=== PATIENT | male | born 1965 | race Caucasian/White ===

== ENCOUNTER → 2024-11-18 | Outpatient (CLI) | payer BC, SELFPAY ==
[2024-11-18 08:44] LABS: Prostate Specific Antigen 0.58 ng/mL (0-4.00)
[2024-11-18 08:48] LABS: Alanine Aminotransferase 21 U/L (10-49); Albumin, Serum 4.3 gm/dL (3.5-5.0); Albumin/Globulin Ratio 1.9 (1.2-2.2); Alkaline Phosphatase 96 U/L (46-116); Anion Gap 8 (7-16); Aspartate Amino Transferase 24 U/L (0-34); BUN/Creatinine Ratio 16 Ratio (12-20); Bilirubin,Total 0.7 mg/dL (0.3-1.2); Blood Urea Nitrogen 24 mg/dL (9-23); Calcium 9.3 mg/dL (8.3-10.6); Calcium (Corrected) 9.3 mg/dL (8.5-10.1); Carbon Dioxide 29.1 mMol/L (20.0-31.0); Cardiac Risk Estimate 5.1 RATIO (4.0-6.7); Chloride 105 mMol/L (98-107); Cholesterol 244 mg/dL (132-200); Creatinine (Component) 1.5 mg/dL (0.6-1.3); Globulin 2.3 gm/dL (2.3-3.5); Glucose 106 mg/dL (74-106); HDL Cholesterol 48 mg/dL (40-60); LDL Cholesterol,Calculated 169 mg/dL (0-130); Osmolality,Calculated 287 (275-295); Potassium 4.9 mMol/L (3.4-5.1); Sodium 142 mMol/L (136-145); Total Protein 6.6 gm/dL (5.7-8.2); Triglycerides 135 mg/dL (30-150); eGFR 54 See Note
== END | disposition home or self-care (01) ==
LOC: COPL 06:58
PROVIDERS: PCP Family Medicine; Referring Provider Family Medicine; Visit Provider Family Medicine
DX: Z13.1 Encounter for screening for diabetes mellitus (principal); E78.1 Pure hyperglyceridemia; N42.9 Disorder of prostate, unspecified
CPT/HCPCS: 36415; 80053; 80061; 84153

== ENCOUNTER 2024-12-23 07:02 | Day surgery (SDC) | payer BC, SELFPAY ==
--- NOTE | 2024-12-21 13:26 | PC.NURSE ---
Tried calling patient for liason did not answer.
--- NOTE | 2024-12-22 07:00 | EKG_ITS ---
[facility] Test Date: 2024-12-21 Pat Name: OLGA MANZANO Department: Room: - Gender: Male Driver Starting Gate: LEANNE : 1965 Requested By: Huang Headley Order Number: [id number] Reading MD: Huang Headley Measurements Intervals [place] Rate: 79 P: 30 ID: [id number] QRS: 26 QRSD: 170 T: 36 QT: 422 QTc: 486 Interpretive Statements ELECTRONIC VENTRICULAR PACEMAKER ABNORMAL RHYTHM ECG Compared to ECG 02/19/2018 11:10:44 Atrial-paced complex(es) or rhythm no longer present /store/S0/[id number]/ecg/[id number].pdf
[2024-12-22 08:52] LABS: Basophils % (Auto) 1 % (0-2.5); Eosinophils # (Auto) 0.1 Thou/mm3 (0.0-0.5); Eosinophils % (Auto) 2 % (0-10); Hematocrit 42.9 % (41.0-53.0); Hemoglobin 14.8 g/dL (13.5-16.0); Immature Granulocytes % (Auto) 0 % (0-0); Immature Granulocytes Auto 0.01 Thou/mm3 (0.00-0.00); Lymphocytes # (Auto) 2.2 Thou/mm3 (1.0-4.8); Lymphocytes % (Auto) 36 % (10-50); Mean Corpuscular HGB Conc 34.5 g/dl (31.0-37.0); Mean Corpuscular Hemoglobin 31.1 pg (25.0-35.0); Mean Corpuscular Volume 90 fL (80-100); Monocytes # (Auto) 0.6 Thou/mm3 (0.0-0.8); Monocytes % (Auto) 10 % (0-12); Neutrophils # (Auto) 3.1 Thou/mm3 (1.8-7.7); Neutrophils % (Auto) 51 % (37-80); Nucleated Red Blood Cell % 0 /100 WBC (0); Platelet Count 161 Thou/mm3 (140-440); RDW Standard Deviation 43.4 fL (35.1-43.9); Red Blood Count 4.76 Miln/mm3 (4.50-5.90)
[2024-12-22 08:58] LABS: Prothrombin Time 11.1 Seconds (9.0-12.2)
[2024-12-22 09:09] LABS: Anion Gap 6 (7-16); BUN/Creatinine Ratio 15 Ratio (12-20); Blood Urea Nitrogen 21 mg/dL (9-23); Calcium 9.1 mg/dL (8.3-10.6); Carbon Dioxide 29.2 mMol/L (20.0-31.0); Chloride 106 mMol/L (98-107); Creatinine (Component) 1.4 mg/dL (0.6-1.3); Glucose 113 mg/dL (74-106); Osmolality,Calculated 285 (275-295); Potassium 4.4 mMol/L (3.4-5.1); Sodium 141 mMol/L (136-145); eGFR 58 See Note
[2024-12-23] VITALS (10 sets, daily range): BP systolic 100–119; BP diastolic 61–75; PULSE 59–73; RESP 12–20; TEMP 36.7–36.8; O2SAT 95–97; BMI 30.4
--- NOTE | 2024-12-23 12:46 | PC.NURSE ---
0950: Pt received for recovery. Report from Bekah CORNELIUS. Pt groggy, but awake. Resp even, unlabored. VS stable. Monitor shows pacing. Dressing to left upper chest dry, clean, intact with no swelling, discoloration. Denies pain. 1020: Pt more awake, alert. Sitting up tolerating breakfast meal with no difficulty swallowing and no n/v. Dressing remains dry, clean, intact with no swelling, discoloration. 1100: Pt resting with no complaints voiced. VS stable. Monitor shows pacing. 1200: Pt fully awake, oriented x3. VS stable. Dressing intact with no swelling, discoloration. Pt dressed and assisted to transport chair. Ambulation steady. Pt and mother stated understanding of discharge instructions. Pt discharged from [facility] in stable condition.
--- NOTE | 2024-12-27 07:24 | ESOP_ITS ---
RE: OLGA MANZANO : 1965 DATE OF OPERATION: 12/23/2024 PROCEDURE PERFORMED: Dual chamber permanent pacemaker generator change out. INDICATIONS FOR PROCEDURE: The patient has a history of dual chamber permanent pacemaker implantation with several change outs in the past. During the routine check, again, was noted to have end-of-life parameters of the pacemaker. DETAILS OF THE PROCEDURE: After explaining the procedure in detail to the patient and after obtaining a proper consent, the patient was given intravenous Versed and intravenous fentanyl as premedication. The left subclavian area was prepped with antiseptic solution. Local anesthetic 2% lidocaine was used and an oblique incision 5 cm in length was made in the left subclavian area. Subcutaneous tissues were dissected and the pacemaker pocket was opened. The generator was taken out of the pocket and leads were unscrewed and were tested. As the leads were functioning satisfactorily, new pacemaker generator were attached to the leads and was put back in the pocket. The pocket was irrigated with IV Ancef solution. The subcutaneous tissue was closed with 2-0 chromic catgut continuous suture. Skin was closed with antonio. The patient tolerated the procedure very well without any complication. The pacemaker data obtained is as follows: Atrially threshold potential obtained is 1.12 volts with P-wave amplitude of 2.0 millivolts and lead resistance of 475 ohms. The ventricular lead threshold potential obtained is 1.0 volts with R-wave amplitude of 10.4 millivolts and lead resistance of 513 ohms. Pacemaker used is [employer] pacemaker Winnie XT DR LAURA Olmos, serial #[id number]. The pacemaker lower rate is set at 60 per minute. DT: 09:48:47 TT: 11:49:00 Ref: [id number] - TID: [id number]
== END 2024-12-23 12:00 | disposition home or self-care (01) ==
PROVIDERS: PCP Family Medicine; Referring Provider Internal Medicine Cardiovascular Disease; Visit Provider Internal Medicine Cardiovascular Disease
PROC: (CPT 33228; principal; 2024-12-23 08:30)
DX: Z45.010 Encounter for checking and testing of cardiac pacemaker pulse generator [battery] (principal); Z01.810 Encounter for preprocedural cardiovascular examination; E78.5 Hyperlipidemia, unspecified; I10 Essential (primary) hypertension
CPT/HCPCS: 33228; 36415; 80048; 85025; 85610; 85730; 93005; 99152; 99153; C1785; J0171; J0461; J0689; J2250; J2310; J2371; J3010; J3490

== ENCOUNTER → 2024-12-30 | Outpatient (CLI) | payer BC, SELFPAY ==
--- NOTE | 2024-12-30 12:20 | XR_ITS ---
EXAMINATION: Ankle, left 3 views . Technique: Ankle AP, oblique, lateral 3 views Date and time of exam: December 2024 1255 hours INDICATIONS: Left ankle pain beginning 2 years ago. FINDINGS: Mild osteoarthritis tibiotalar joint Tiny plantar posterior bony calcaneal spurs No fractures IMPRESSION: Mild osteoarthritis tibiotalar joint
== END | disposition home or self-care (01) ==
LOC: CDIM 12:14
PROVIDERS: PCP Family Medicine; Referring Provider Family Medicine; Visit Provider Family Medicine
DX: M19.072 Primary osteoarthritis, left ankle and foot (principal)
CPT/HCPCS: 73610

== ENCOUNTER → 2025-02-23 | Outpatient (CLI) | payer BC, SELFPAY ==
--- NOTE | 2025-02-23 16:00 | XR_ITS ---
Examination: CT left ankle, without contrast. 2-D sagittal reconstructions. 2-D coronal reconstructions. 3-D reconstructions. Date and time of exam:February 23, 2025 1536 hours INDICATIONS: Ankle pain 1.5 years CTDI: vol (mGy):5.61 DLP: (mGycm):127 Technique: Multiple 1.25 mm axial sections of the left ankle without intravenous contrast have been obtained. 2-D sagittal and coronal reconstructions have been obtained. 3-D reconstructions have been obtained. Low dose protocols were performed. One or more of the following dose reduction techniques were used; automated exposure control, adjustment of the mA and/or KV according to patient size, use of iterative reconstruction technique. Findings: Distal tibia and distal fibula intact Mild osteoarthritis tibiotalar and subtalar joint 3 mm plantar bony calcaneal spur Mild osteoarthritis intertarsal joints No avascular necrosis No Lisfranc tarsometatarsal dislocations IMPRESSION: Mild osteoarthritis as above 3 mm plantar bony calcaneal spur If ankle pain persists, as clinically warranted, consider MRI ankle without contrast follow-up
== END | disposition home or self-care (01) ==
LOC: CCTX 15:25
PROVIDERS: Referring Provider Family Medicine; Visit Provider Family Medicine
DX: M19.072 Primary osteoarthritis, left ankle and foot (principal); M77.32 Calcaneal spur, left foot
CPT/HCPCS: 73700

== ENCOUNTER 2025-04-12 04:25 | Emergency (ER) | payer BC, SELFPAY ==
[2025-04-12 04:26] VITALS: BP 123/78; PULSE 92; RESP 17; TEMP 37.1; O2SAT 97
--- NOTE | 2025-04-12 04:39 | PD.EDALLER ---
ED Allergic Reaction RME/HPI General Chief complaint: Allergic Reaction Stated complaint: ICHY HIVES Time Seen by Provider: 04/12/25 04:38 Arrival date/time: 04/12/25 04:25 This is a case of 59-year-old male with no medical history came in in the emergency room due to generalized urticarial rashes which started last night with itching no shortness of breath patient can speak full sentences no drooling of saliva persistence of the symptoms this patient decided to sought consult here in the emergency room Limitations: no limitations Related Data Previous Rx's ?Medication ?Instructions ?Recorded diphenhydramine HCl 25 mg capsule 25 mg PO TID PRN allergic reaction 04/12/25 (Benadryl) #20 caps famotidine 20 mg tablet (Pepcid) 20 mg PO BID #20 tabs 04/12/25 prednisone 20 mg tablet See Taper PO QDAY 5 days #5 tabs 04/12/25 Allergies Allergy/AdvReac Type Severity Reaction Status Date / Time walnut Allergy Mild MOUTH Verified 04/12/25 04:27 BREAKS OUT Review of Systems Review of Systems Systems Reviewed: All systems reviewed, normal except as documented Constitutional Constitutional: Reports system reviewed and no additional complaints, except as documented and Reports as per HPI Cardiovascular Cardiovascular: Reports system reviewed and no additional complaints, except as documented and Reports as per HPI Respiratory Respiratory: Reports system reviewed and no additional complaints, except as documented and Reports as per HPI Gastrointestinal Gastrointestinal: Reports system reviewed and no additional complaints, except as documented and Reports as per HPI Integumentary/Breasts Skin/Breast: Reports other (rash) Neurologic Neurologic: Reports system reviewed and no additional complaints, except as documented and Reports as per HPI Past Medical History Past Medical History NEUROLOGIC: Negative Neurological Disorders, Dementia, Seizures or Epilepsy CARDIAC: Negative Cardiac Disorders, Hypercholesterolemia, Congestive Heart Failure, Edema or Hypertension RESPIRATORY: Negative Chronic Obstructive Pulmonary Disease (COPD), Asthma, Bronchitis or Sleep Apnea GASTROINTESTINAL: Negative Gastrointestinal Disorders, Cirrhosis, Gastroesophageal Reflux Disease or Obesity GENITOURINARY: Negative Genitourinary Disorders or Renal Disease MUSCULOSKELETAL: Negative Musculoskeletal Disorders or Arthritis ENDOCRINE: Negative Diabetes Mellitus Type 1 or Diabetes Mellitus Type 2 HEMATOLOGIC: Negative Blood Disorders PSYCHO/SOCIAL: Negative Schizophrenia, Bipolar Disorder, Depression, Anxiety or Post Traumatic Stress Disorder OTHER HISTORY: Positive Chicken Pox; Negative Autoimmune Disease, Anesthesia Reactions, Organ Transplant, MRSA, Clostridium Difficile or Cancer Family History FAMILY HISTORY: Negative Family Cardiac Disorders Surgical History SURGICAL: Positive Cardiac Surgery (pacemaker), Pacemaker, Angiogram and Nose Surgery; Negative Open Heart Surgery, Coronary Artery Bypass Graft, Valve Replacement, Endocrine Surgery, Ear Surgery, Tonsillectomy, Abdominal Surgery, Nephrectomy, Amputation, Neurologic Surgery, Vasectomy or Organ Transplant Social History SMOKING STATUS: Never smoker ED Exam General Limitations: Present no limitations General appearance: Present alert, in no apparent distress and other (Patient is awake alert oriented not in distress nontoxic looking well-hydrated well-nourished) Head Head exam: Present atraumatic, normocephalic and normal inspection Eye Eye exam: Present normal appearance, PERRL and EOMI ENT ENT exam: Present normal exam, normal oropharynx, mucous membranes moist and other (HEENT exam is normal and unremarkable no drooling of saliva no throat or facial swelling) Neck Neck exam: Present normal inspection, full ROM and trachea midline; Absent tenderness Chest Chest inspection: Present normal inspection and symmetric chest wall rise; Absent tenderness Respiratory Respiratory exam: Present normal lung sounds bilaterally; Absent respiratory distress, wheezes, stridor, accessory muscle use or prolonged expiratory phase Cardiovascular Cardiovascular exam: Present regular rate, normal rhythm and normal heart sounds; Absent bradycardia, tachycardia, irregular rhythm, systolic murmur or diastolic murmur Abdominal Exam Abdominal exam: Present soft and normal bowel sounds Extremities Exam Extremities exam: Present normal inspection and full ROM Back Exam Back exam: Present normal inspection and full ROM Neurological Exam Neurological exam: Present alert, oriented X3, CN II-XII intact, normal gait and reflexes normal; Absent motor sensory deficit Psychiatric Psychiatric exam: Present normal affect and normal mood Skin Skin exam: Present warm, dry, intact, normal color and other (Patient noted to have a generalized urticarial rashes on the both upper extremities chest abdomen pelvis and both lower extremities none blanches noneffective no cellulitis no abscess) Course Quality Measures none Orders Category Date Time Status DiphenhydrAMINE INJ [Benadryl Inj] Med 04/12/25 04:38 Once 25 mg IM X1 ONE Famotidine [Pepcid] Med 04/12/25 04:38 Once 40 mg PO X1 ONE MethylPREDNISolone.* [SoluMEDROL Inj] Med 04/12/25 04:38 Once 125 mg IM X1 ONE Vital Signs Vital signs: Vital Signs Temperature 98.7 F 04/12/25 04:26 Pulse Rate 92 04/12/25 04:26 Respiratory Rate 17 04/12/25 04:26 Blood Pressure 123/78 04/12/25 04:26 Pulse Oximetry (%) 97 04/12/25 04:26 Oxygen Delivery Method Room Air 04/12/25 04:26 Patient is afebrile not tachycardic not tachypneic BP stable not hypoxic oxygen saturation is 97% in room air Allergic Reaction MDM Narrative MDM Narrative:: Physical examination patient is awake alert oriented not in distress nontoxic looking well-hydrated well-nourished noted aThis is a case of 59-year-old male with no medical history came in in the emergency room due to generalized urticarial rashes which started last night with itching no shortness of breath patient can speak full sentences no drooling of saliva persistence of the symptoms this patient decided to sought consult here in the emergency room generalized urticarial rashes and the chest abdomen back both upper extremities both lower extremities 9 blotches no cellulitis noninfected no abscess no facial or throat swelling no shortness of breath clear breath sound no signs and symptoms of angioedema no anaphylaxis patient was given Solu-Medrol Pepcid and Benadryl which improved and condition and subside the rashes patient will follow-up with PCP to be referred to customer advisor specialist for allergy testing he was discharged with Pepcid prednisone and Benadryl for any recurrence persistent worsening symptoms he will return to the emergency room immediately or call 911 Patient was discharged with comfortable condition walking with stable gait. Patient verbalized no further complains explained diagnosis and answered patient question. Patient is comfortable with the proposed management plan including the need to follow up with his/her primary care physician and any specialist if applicable Discussed patient for any urgent condition or worsening sx, He/She needed to go to emergency room immediately or call 911. Patient acknowledge the responsibility to follow up as instructed and to monitor her/his symptoms. For any persistence of the symptoms for more than 3-5 days return precaution advised. Discussed the result of the test and was given printed discharge instruction Patient data External records reviewed:: [facility] previous records Clinical information provided by:: patient Social determinants that could affect healthcare access:: none Patient has the following chronic illnesses:: None How is presenting disease/condition affected by chronic disease/condition?: no chronic disease Evaluation data The following diagnostics were reviewed and interpreted by me:: other (specify) Lab and/or radiology exams considered but not ordered:: None Interpretation Summary: None Medications / Prescriptions Medications or Prescriptions considered but not ordered:: Given Medication administrations:: Medication Administration History Diphenhydramine HCl (Diphenhydramine Inj 50 Mg/Ml Vial) 25 mg IM X1 ONE Stop: 04/12/25 04:39 Famotidine (Famotidine 20 Mg Tablet) 40 mg PO X1 ONE Stop: 04/12/25 04:39 Methylprednisolone Sodium Succinate (Methylprednisolone Sod Succ 62.5 Mg/Ml 2ml Vial) 125 mg IM X1 ONE Stop: 04/12/25 04:39 Given Consultations Consultation(s) initiated? (list below): No Diagnosis Differential Diagnosis allergic reaction: allergic reaction, contact dermatitis and urticaria Most likely diagnosis given after review of the tests above:: Allergic urticaria Admission Indicated Admission indicated?: not indicated Explain why admission is indicated or not indicated:: Not indicated Admission Request Was there a request for admission?: No Admission Attestation Admission request attestation: Not indicated Disposition Plan Disposition Plan: Discharge Discharge Attestation Discharge Attestation: The patient and all family members were given an opportunity to ask questions and understood the discharge instructions. Discharge instructions specifically effects, indications for sooner follow up or return to the emergency department, and the expected course of current diagnosis. Patient condition: Stable Discharge Plan Plan Patient Disposition: HOME (Self Care) Patient condition on transfer: Stable Prescriptions/Referrals Prescriptions/Med Rec: New diphenhydramine HCl [Benadryl] 25 mg capsule 25 mg PO TID PRN (Reason: allergic reaction) Qty: 20 0RF prednisone 20 mg tablet See Taper PO QDAY 5 Days Qty: 5 0RF Taper: Prednisone Taper 20 mg DAILY for 2 Days and 0 Hour 10 mg DAILY for 2 Days and 0 Hour 5 mg DAILY for 7 Days and 0 Hour famotidine [Pepcid] 20 mg tablet 20 mg PO BID Qty: 20 0RF Problem List Clinical Impression: Urticaria, Allergic reaction Patient/Caregiver Discharge Instructions Education Materials: ED Hives (Adult) Additional Instructions: Follow-up with your primary care physician in 2 days for reevaluation worsening symptoms recurrent symptoms or persistence of symptoms or any emergent concern call 911 or go to the nearest emergency room you need to see an customer advisor specialist for allergy testing use hypoallergenic soap and hypoallergenic laundry soap is advised keep the area clean and dry Print Language: Luxembourgish Stand Alone Forms: Ade Award Info., Patient Portal Info Letter PA/PATIENT EXPERIENCE COORDINATOR Supervising Physician PA/PATIENT EXPERIENCE COORDINATOR Supervising Physician: dr soliz
[2025-04-12] MEDS: MethylPREDNISolone SOD SUCC 62.5 MG/ML 2ML VIAL 125 MG IM (05:17)
[2025-04-12] MEDS: FAMOTIDINE 20 MG TABLET 40 MG PO (05:18)
== END 2025-04-12 05:45 | disposition home or self-care (01) ==
LOC: SERX 05:38
PROVIDERS: Emergency Provider Emergency Medicine; PCP Family Medicine
DX: L50.9 Urticaria, unspecified (principal); T78.40XA Allergy, unspecified, initial encounter
CPT/HCPCS: 96372; 99283; J1200; J2919; A9270